=== PATIENT | female | born 1940 | race Caucasian/White ===

== ENCOUNTER → 2017-09-25 | Outpatient (CLI) | payer MEDICARE, BC ==
[2002-12-22 15:23] VITALS: PULSE 72
== END ==
LOC: COL.RAD 07:50
DX: M51.26 Other intervertebral disc displacement, lumbar region (principal); M43.16 Spondylolisthesis, lumbar region; M48.07 Spinal stenosis, lumbosacral region; R29.6 Repeated falls; Z96.89 Presence of other specified functional implants

== ENCOUNTER 2018-05-11 13:30 | Outpatient (RCR) | payer MEDICARE, BC | END 2018-05-11 14:30 | disposition home or self-care (01) | LOC: WSC 13:30 | DX: M54.42 Lumbago with sciatica, left side (principal); G89.29 Other chronic pain ==

== ENCOUNTER 2020-07-26 11:00 | Outpatient (RCR) | payer MEDICARE, BC | END 2020-08-22 | disposition home or self-care (01) | LOC: WSPT | DX: M54.9 Dorsalgia, unspecified (principal); G89.29 Other chronic pain ==